=== PATIENT | male | born 2000 | race Caucasian/White ===

== ENCOUNTER 2019-07-24 11:24 | Emergency (ER) | payer SELFPAY ==
[2019-07-24 11:32] VITALS: BMI 47.6
[2019-07-24] MEDS ORDERED: ALBUTEROL SO4 2.5/IPRATROPIUM 0.5 INH SOL 3 ML VIAL.NEB. NEB ONE (11:32)
[2019-07-24] MEDS ORDERED: methylPREDNISolone NA SUCC 125 MG/2 ML VIAL ONE (11:33)
[2019-07-24] MEDS ORDERED: ALBUTEROL SO4 0.083% IH SOL 2.5 MG/3 ML VIAL.NEB. NEB ONE (11:36)
--- NOTE | 2019-07-24 11:36 | PDOC ---
History of Present Illness - General Chief Complaint: Asthma Stated Complaint: ASTHMA Time Seen by Provider: 07/24/19 11:31 History Source: Patient Exam Limitations: No Limitations - History of Present Illness Initial Comments: 07/24/19 11:31 19y M hx of well controlled asthma (on alb at home as needed, lsat hospitalization when he was a child) presents with sob. Pt notes a mild nonproductive cough for seveal days that worsened today. pt has been using his nebs with improvement of his sypmom but ran out. Pt denies any fever/chills, chest pain, hemoptysis, abd pain, n/v, diaphoresis, leg swelling or calf pain. Family Hx: non contriubotory Social: denies smoking/vaping, etoh abuse PMD: Dr. Vizcarra Past History - Past Medical History Allergies/Adverse Reactions: Allergies Allergy/AdvReac Type Severity Reaction Status Date / Time No Known Allergies Allergy Verified 07/24/19 11:41 Home Medications: Ambulatory Orders Albuterol 0.083% Nebulizer Jacqueline [Ventolin 0.083% Nebulizer Soln -] 1 neb NEB Q4H PRN #30 vial 07/24/19 Albuterol Sulfate Inhaler - [Ventolin HFA Inhaler -] 1 - 2 inh PO Q4H PRN #1 inhaler 07/24/19 predniSONE [Deltasone -] 40 mg PO DAILY #8 tablet 07/24/19 Review of Systems - Review of Systems Able to Perform ROS?: Yes Comments:: 07/24/19 11:33 Constitutional - no reported Fever, Chills, HEENT: no reported vision changes, sore throat Respiratory: + cough, sob, no reported hemoptysis Cardiac: no reported chest pain, palpitations, light headedness, leg swelling Abd/GI: no reported abd pain, nausea, vomiting, blood per rectum, melena, diarrhea : no reported dysuria, frequency, discharge Musculskelatal - no reported back pain, joint swelling skin - no reported bruising, erythema, rash neurological: no reported headache, numbness, focal weakness, tingling, ataxia, hematologic: no reported easy bruising, easy bleeding GENERAL: The patient is awake, alert, and fully oriented, moderate repiratory disterss, HEAD: Normocephalic, atraumatic. EYES: extraocular movements intact, sclera anicteric, conjunctiva clear. ENT: Normal voice, Moist mucous membranes. NECK: Normal range of motion, supple LUNGS: Bdiffuse wheezing bilaterally, +accessory muscle use, speaking shor segments HEART: Regular rate and rhythm, normal S1 and S2 without murmur, rub or gallop. ABDOMEN: Soft, nontender, No guarding, no rebound. No CVA tenderness EXTREMITIES: Normal range of motion, no edema. NEUROLOGICAL: No facial assymetry, Normal speech, PSYCH: Normal mood, normal affect. SKIN: Warm, Dry, normal turgor, Heart Score/ECG Review - ECG Impressions Comment:: 07/24/19 12:19 Twelve-lead EKG was performed and reviewed by me. There is normal sinus rhythm with a rate of 113 right axis deviation ED Treatment Course - LABORATORY CBC & Chemistry Diagram: 07/24/19 11:43 07/24/19 11:43 Medical Decision Making - Medical Decision Making suspect asthma excerbation will give nebs, steroids xray will erasess 07/24/19 12:18 pt feeling improved, speaking more words no accessory muscle use still some wheezing b/l cxr neg matt lgiv emag and erassess 07/24/19 12:57 pt looks much better sat was low earlier - but pt was sleeping, whne i woke him up, his sat jumped up to 96-98% on RA. breath sounds clear stil bit tachy, will give fliuds cxr, labs unremarkable will erassess 07/24/19 15:00 after prolonged obsevatoin, pt feeling improved ambulating 2x around the ER without any SOB, tachypneia repeat pulm exam stil with scattered wheezing I discussed the physical exam findings, ancillary test results and final diagnoses with the patient. I answered all of the patient's questions. The patient was satisfied with the care received and felt comfortable with the discharge plan and treatment plan. The patient will call their primary care physician within 24 hours to arrange follow-up and will return to the Emergency Department with any new, persistent or worsening symptoms. Discharge - Discharge Information Problems reviewed: Yes Clinical Impression/Diagnosis: Asthma Qualifiers: Asthma severity: mild Asthma persistence: intermittent Asthma complication type : with acute exacerbation Qualified Code(s): J45.21 - Mild intermittent asthma with (acute) exacerbation Condition: Improved Disposition: HOME - Admission No - Additional Discharge Information Prescriptions: Albuterol 0.083% Nebulizer Jacqueline [Ventolin 0.083% Nebulizer Soln -] 1 neb NEB Q4H PRN #30 vial PRN Reason: Shortness Of Breath Albuterol Sulfate Inhaler - [Ventolin HFA Inhaler -] 1 - 2 inh PO Q4H PRN #1 inhaler PRN Reason: Shortness Of Breath predniSONE [Deltasone -] 40 mg PO DAILY #8 tablet - Follow up/Referral Referrals: Roberto Vizcarra MD [Primary Care Provider] - - Patient Discharge Instructions Patient Printed Discharge Instructions: Asthma -- Adult Additional Instructions: Return to the emergency department immediately with ANY new, persistent or worsening symptoms including worsening difficulty breathing, fevers, chest pain or any other concerns. Use the albuterol as needed, up to every four hours, if you need it more often you should come back to the ED Take the prednisone as prescribed You MUST call and follow up with your doctor in 4-5 days for further evaluation of your symptoms. Results were discussed with you. Please make sure your doctor reviews the results of your emergency evaluation. Your Emergency Department visit is not complete without a follow up with your doctor. Print Language: IRISH - Post Discharge Activity Work/Back to School Note: Back to Work
[2019-07-24] MEDS ORDERED: methylPREDNISolone NA SUCC 125 MG/2 ML VIAL IVPUSH ONE (11:37)
[2019-07-24 11:52] LABS: VENOUS PC02 54.4 mmHg (38-52); VENOUS PH 7.33 (7.31-7.41)
[2019-07-24 11:59] LABS: BASO % 1.3 % (0-2.0); EOS % 3.7 % (0-4.5); HEMATOCRIT 43.6 % (35.4-49); LYMPH % 16.4 % (8-40); MCH 26.5 pg (25.7-33.7); MCHC 32.1 g/dl (32.0-35.9); MEAN CELL VOLUME 82.5 fl (80-96); MEAN PLT VOLUME 8.4 fl (7.5-11.1); MONO % 5.8 % (3.8-10.2); NEUT % 72.8 % (42.8-82.8); PLATELET COUNT 364 K/MM3 (134-434); RBC 5.28 M/mm3 (4.00-5.60); RDW 13.9 % (11.9-15.9); WHITE BLOOD COUNT 13.3 K/mm3 (4.0-10.0)
[2019-07-24 12:06] VITALS: TEMP 99
[2019-07-24 12:09] LABS: VENOUS PO2 < 49 mmHg (28-48)
[2019-07-24] MEDS ORDERED: MAGNESIUM SULF 50% (8.12 MEQ/2 ML-1 GM VIAL) IVPB ONE (12:18)
[2019-07-24] MEDS ORDERED: MAGNESIUM 1GM/D5W - 2 GM/200 ML IVPB IVPB ONE (12:20)
[2019-07-24 12:23] LABS: ALBUMIN 3.6 g/dl (3.4-5.0); BILIRUBIN,TOTAL 0.3 mg/dL (0.2-1); BLOOD UREA NITROGEN 15.8 mg/dL (7-18); CALCIUM 9.3 mg/dL (8.5-10.1); CREATININE 0.8 mg/dL (0.55-1.3); POTASSIUM 4.4 mmol/L (3.5-5.1); TOT PROT 8.2 g/dl (6.4-8.2)
[2019-07-24 12:42] LABS: N-TERMINAL BNP 14.3 pg/ml (5-125)
[2019-07-24] MEDS ORDERED: SODIUM CHLORIDE 1,000 ML IV ONE (12:57)
--- NOTE | 2019-07-24 13:58 | EKG ---
Test Reason : Blood Pressure : / mmHG Vent. Rate : 113 BPM Atrial Rate : 113 BPM P-R Int : 152 ms QRS Dur : 096 ms QT Int : 340 ms P-R-T Axes : 068 102 041 degrees QTc Int : 466 ms POOR DATA QUALITY, INTERPRETATION MAY BE ADVERSELY AFFECTED SINUS TACHYCARDIA RIGHTWARD AXIS BORDERLINE ECG NO PREVIOUS ECGS AVAILABLE Confirmed by LOLITA SÁNCHEZ, GOPAL ([id number]) on 07/24/2019 1:57:55 PM Referred By: Confirmed By:GOPAL MCHUGH MD
[2019-07-24 14:22] VITALS: BP 156/70; PULSE 105
== END 2019-07-24 15:44 | disposition home or self-care (01) ==
LOC: JER 11:24 → SUPCPDRO 11:24 → JER 15:44
PROC: 3E0F7GC Introduction of Other Therapeutic Substance into Respiratory Tract, Via Natural or Artificial Opening (ICD-10-PCS; principal; 2019-07-24)
PROC: 3E0337Z Introduction of Electrolytic and Water Balance Substance into Peripheral Vein, Percutaneous Approach (ICD-10-PCS; 2019-07-24)
PROC: 3E0333Z Introduction of Anti-inflammatory into Peripheral Vein, Percutaneous Approach (ICD-10-PCS; 2019-07-24)
PROC: 3E033GC Introduction of Other Therapeutic Substance into Peripheral Vein, Percutaneous Approach (ICD-10-PCS; 2019-07-24)
DX: J45.20 Mild intermittent asthma, uncomplicated (principal)
CPT/HCPCS: 36415; 71045-TC-FY; 80053; 82803; 83880; 85025; 93005; 93010; 99283-25; J7030

== ENCOUNTER 2021-06-20 12:59 | Emergency (ER) | payer OTHER ==
[2021-06-20 13:20] VITALS: BP 140/72; PULSE 98; TEMP 97.5; BMI 42.8
== END 2021-06-20 17:57 | disposition home or self-care (01) ==
LOC: JER 12:59
DX: J45.901 Unspecified asthma with (acute) exacerbation (principal)
CPT/HCPCS: 99283-25; C9803; U0003; U0005

== ENCOUNTER 2022-11-20 16:13 | Emergency (ER) | payer OTHER ==
[2022-11-20 16:28] VITALS: BP 159/94; PULSE 87; RESP 20; TEMP 98.1; BMI 48.7
[2022-11-20] MEDS ORDERED: predniSONE 20 MG TABLET (UD) PO ONE (16:29)
[2022-11-20] MEDS ORDERED: ALBUTEROL SO4 2.5/IPRATROPIUM 0.5 INH SOL 3 ML VIAL.NEB. NEB SCH (16:30)
== END 2022-11-20 18:05 | disposition home or self-care (01) ==
LOC: JERFT 16:13
PROC: 3E0F7GC Introduction of Other Therapeutic Substance into Respiratory Tract, Via Natural or Artificial Opening (ICD-10-PCS; principal; 2022-11-20)
DX: J45.909 Unspecified asthma, uncomplicated (principal)
CPT/HCPCS: 0241U-QW; 71046-TC-FY; 99284-25

== ENCOUNTER 2022-12-16 20:19 | Inpatient (IN) | payer OTHER ==
[2022-12-16] MEDS ORDERED: ALBUTEROL SO4 2.5/IPRATROPIUM 0.5 INH SOL 3 ML VIAL.NEB. NEB ONE ×2 (20:21→20:25)
[2022-12-16] MEDS ORDERED: MAGNESIUM SULF 50% (8.12 MEQ/2 ML-1 GM VIAL) IVPB ONE (20:25)
[2022-12-16] MEDS ORDERED: methylPREDNISolone NA SUCC 125 MG/2 ML VIAL IVPUSH ONE (20:25)
[2022-12-16] MEDS ORDERED: methylPREDNISolone NA SUCC 125 MG/2 ML VIAL ONE (20:25)
[2022-12-16] MEDS ORDERED: MAGNESIUM SULFATE IN WATER 2 GM/50 ML IVPB IVPB ONE (20:28)
[2022-12-16 20:50] LABS: BASO % 0.7 % (0-2.0); EOS % 7.2 % (0-4.5); HEMATOCRIT 42.1 % (35.4-49); HEMOGLOBIN 14.1 GM/dL (11.7-16.9); LYMPH % 21.1 % (8-40); MCH 26.8 pg (25.7-33.7); MCHC 33.4 g/dl (32.0-35.9); MEAN CELL VOLUME 80.4 fl (80-96); MEAN PLT VOLUME 8.1 fl (7.5-11.1); PLATELET COUNT 388 10^3/uL (134-434); RBC 5.24 M/mm3 (4.00-5.60); RDW 14.8 % (11.9-15.9); WHITE BLOOD COUNT 14.9 K/mm3 (4.0-10.0)
[2022-12-16 20:52] LABS: VENOUS BASE EXCESS 2.9 mmol/L (-2-2); VENOUS O2 SATURATION 63.2 % (70-80); VENOUS PCO2 60.1 mmHg (38-52); VENOUS PH 7.326 (7.310-7.410)
[2022-12-16 21:10] LABS: BLOOD UREA NITROGEN 12.7 mg/dL (7-18); CALCIUM 9.3 mg/dL (8.5-10.1)
[2022-12-16 21:13] LABS: CREATININE 0.8 mg/dL (0.55-1.3)
[2022-12-16 21:15] LABS: BILIRUBIN,TOTAL 0.4 mg/dL (0.2-1); TOT PROT 7.8 g/dl (6.4-8.2)
[2022-12-16] MEDS ORDERED: ALBUTEROL SO4 HFA INHALER IH PRN (23:32)
[2022-12-17] MEDS: ALBUTEROL SO4 2.5/IPRATROPIUM 0.5 INH SOL 3 ML VIAL.NEB. NEB SCH ×7 (00:37→23:00)
[2022-12-17] MEDS: ENOXAPARIN NA (PORCINE) 40 MG/0.4 ML DISP.SYRIN SQ SCH ×3 (00:57→21:22)
[2022-12-17] MEDS: MONTELUKAST NA 5 MG TAB.CHEW PO SCH ×2 (01:26→21:22)
[2022-12-17] MEDS: methylPREDNISolone NA SUCC 40 MG/1 ML VIAL IVPUSH SCH ×3 (02:19→21:22)
[2022-12-17] MEDS: BUDESONIDE 0.25 MG/2ML INH SUSP VIAL NEB SCH ×2 (07:29→20:07)
[2022-12-17 10:00] LABS: HEMATOCRIT 42.3 % (35.4-49); HEMOGLOBIN 13.9 GM/dL (11.7-16.9); MCH 26.2 pg (25.7-33.7); MCHC 32.8 g/dl (32.0-35.9); MEAN CELL VOLUME 79.9 fl (80-96); MEAN PLT VOLUME 8.6 fl (7.5-11.1); PLATELET COUNT 431 10^3/uL (134-434); RDW 14.8 % (11.9-15.9); WHITE BLOOD COUNT 12.1 K/mm3 (4.0-10.0)
[2022-12-17 10:24] LABS: BLOOD UREA NITROGEN 14.2 mg/dL (7-18)
[2022-12-17 10:25] LABS: CALCIUM 9.5 mg/dL (8.5-10.1); MAGNESIUM 2.2 mg/dL (1.8-2.4)
[2022-12-17 10:26] LABS: PHOSPHOROUS 3.7 mg/dL (2.5-4.9)
[2022-12-17 10:27] LABS: CREATININE 0.9 mg/dL (0.55-1.3)
[2022-12-17 10:28] LABS: BILIRUBIN,TOTAL 0.3 mg/dL (0.2-1); TOT PROT 7.9 g/dl (6.4-8.2)
[2022-12-17 11:19] LABS: ANISOCYTOSIS 0; HELMET CELLS 0; HOWELL-JOLLY BODIES 0; MACROCYTOSIS 0; OVALOCYTE 0; ROULEAU 0; SICKELED CELLS 0; TARGET CELLS 0; TEAR DROP CELLS 0; TOXIC GRANULATION 0
[2022-12-17] MEDS ORDERED: methylPREDNISolone NA SUCC 40 MG/1 ML VIAL IVPUSH SCH (11:30)
[2022-12-17 11:41] LABS: EPI CELLS >36 /uL (0-25.1); HYALINE CASTS 15 /uL (0-3.1); PH,URINE 5.5 (5.0-8.0); URINE APPEARANCE CLOUDY; URINE BACTERIA 43 /uL (0-1359); URINE BILIRUBIN NEGATIVE (NEGATIVE); URINE COLOR YELLOW; URINE GLUCOSE (UA) NEGATIVE (NEGATIVE); URINE KETONE TRACE (NEGATIVE); URINE LEUK ESTERASE NEGATIVE (NEGATIVE); URINE NITRITE NEGATIVE (NEGATIVE); URINE PROTEIN 4+ (NEGATIVE); URINE UROBILINOGEN 0.2 mg/dL (0.2-1.0); URINE WBC 21 /uL (0-25.8)
[2022-12-17 20:37] LABS: EPI CELLS 15 /uL (0-25.1); HYALINE CASTS 1 /uL (0-3.1); URINE APPEARANCE CLEAR; URINE BACTERIA 12 /uL (0-1359); URINE BILIRUBIN NEGATIVE (NEGATIVE); URINE COLOR YELLOW; URINE GLUCOSE (UA) NEGATIVE (NEGATIVE); URINE KETONE TRACE (NEGATIVE); URINE LEUK ESTERASE NEGATIVE (NEGATIVE); URINE NITRITE NEGATIVE (NEGATIVE); URINE PROTEIN 4+ (NEGATIVE); URINE RBC 70 /uL (0-23.9); URINE UROBILINOGEN 0.2 mg/dL (0.2-1.0); URINE WBC 10 /uL (0-25.8)
[2022-12-18] MEDS: ALBUTEROL SO4 2.5/IPRATROPIUM 0.5 INH SOL 3 ML VIAL.NEB. NEB SCH ×5 (05:00→20:30)
[2022-12-18] MEDS: BUDESONIDE 0.25 MG/2ML INH SUSP VIAL NEB SCH ×2 (07:13→20:30)
[2022-12-18 09:19] LABS: BASO % 0.5 % (0-2.0); HEMATOCRIT 41.8 % (35.4-49); HEMOGLOBIN 13.5 GM/dL (11.7-16.9); LYMPH % 7.9 % (8-40); MCH 25.9 pg (25.7-33.7); MCHC 32.2 g/dl (32.0-35.9); MEAN CELL VOLUME 80.5 fl (80-96); MEAN PLT VOLUME 8.5 fl (7.5-11.1); MONO % 3.4 % (3.8-10.2); NEUT % 88.2 % (42.8-82.8); PLATELET COUNT 416 10^3/uL (134-434); WHITE BLOOD COUNT 15.9 K/mm3 (4.0-10.0)
[2022-12-18 09:33] LABS: BLOOD UREA NITROGEN 19.8 mg/dL (7-18); CALCIUM 9.4 mg/dL (8.5-10.1)
[2022-12-18] MEDS: ENOXAPARIN NA (PORCINE) 40 MG/0.4 ML DISP.SYRIN SQ SCH ×2 (09:35→21:26)
[2022-12-18 09:37] LABS: CREATININE 0.7 mg/dL (0.55-1.3)
[2022-12-18] MEDS: methylPREDNISolone NA SUCC 40 MG/1 ML VIAL IVPUSH SCH ×2 (09:44→21:27)
[2022-12-18 11:16] LABS: ERYTHROCYTE SEDIMENTATION RATE 15 mm/hr (0-10)
[2022-12-18] MEDS ORDERED: AZITHROMYCIN 250 MG TABLET PO ONE (13:02)
[2022-12-18 15:46] VITALS: BMI 55.1
[2022-12-18] MEDS: MONTELUKAST NA 5 MG TAB.CHEW PO SCH (21:26)
[2022-12-19] MEDS: ALBUTEROL SO4 2.5/IPRATROPIUM 0.5 INH SOL 3 ML VIAL.NEB. NEB SCH ×7 (00:49→23:42)
[2022-12-19] MEDS: BUDESONIDE 0.25 MG/2ML INH SUSP VIAL NEB SCH ×2 (08:22→20:41)
[2022-12-19] MEDS: AZITHROMYCIN 250 MG TABLET PO SCH (09:10)
[2022-12-19] MEDS: ENOXAPARIN NA (PORCINE) 40 MG/0.4 ML DISP.SYRIN SQ SCH ×2 (09:12→21:10)
[2022-12-19] MEDS: methylPREDNISolone NA SUCC 40 MG/1 ML VIAL IVPUSH SCH ×2 (09:12→21:10)
[2022-12-19] MEDS: MONTELUKAST NA 5 MG TAB.CHEW PO SCH (21:10)
[2022-12-20] MEDS: ALBUTEROL SO4 2.5/IPRATROPIUM 0.5 INH SOL 3 ML VIAL.NEB. NEB SCH ×4 (04:45→16:45)
[2022-12-20] MEDS: BUDESONIDE 0.25 MG/2ML INH SUSP VIAL NEB SCH (08:10)
[2022-12-20] MEDS: ENOXAPARIN NA (PORCINE) 40 MG/0.4 ML DISP.SYRIN SQ SCH (09:28)
[2022-12-20] MEDS: methylPREDNISolone NA SUCC 40 MG/1 ML VIAL IVPUSH SCH (09:28)
[2022-12-20] MEDS: AZITHROMYCIN 250 MG TABLET PO SCH (09:28)
[2022-12-20 10:39] VITALS: RESP 18
[2022-12-20 13:43] VITALS: BP 121/68; PULSE 88; TEMP 98.2
== END 2022-12-20 16:58 | disposition home or self-care (01) | DRG 139 ==
LOC: JER 20:19 → JERBED 22:39 → UNDOADMOB 22:39 → J6S 12-17 00:15 → JERBED 12-17 00:15 → J6S 12-18 13:07 → OBSVTOIN 12-18 13:07 → INTOOBSV 12-18 13:07
PROVIDERS: ADMIT Internal Medicine; ATTEND Internal Medicine
DX: J18.9 Pneumonia, unspecified organism (principal); J45.52 Severe persistent asthma with status asthmaticus; E66.2 Morbid (severe) obesity with alveolar hypoventilation; Z68.43 Body mass index [BMI] 50.0-59.9, adult
CPT/HCPCS: 0241U-QW; 36415; 71045-TC-FY; 71250-TC; 76775-TC; 76856-TC; 80048; 80053; 80061; 81003; 82533; 82570; 82803; 83036; 83735; 84100; 84156; 84443; 85025; 85651; 86140; 87086; 93005; 93010; 94640; 94761; 99285-25

== ENCOUNTER 2024-01-10 23:55 | Observation (INO) | payer OTHER ==
[2024-01-11] MEDS ORDERED: DEXAMETHASONE SOD PHOSPHATE 10 MG/1 ML VIAL ONE (00:04)
[2024-01-11] MEDS ORDERED: ALBUTEROL SO4 2.5/IPRATROPIUM 0.5 INH SOL 3 ML VIAL.NEB. NEB ONE (00:06)
[2024-01-11] MEDS: ALBUTEROL SO4 2.5/IPRATROPIUM 0.5 INH SOL 3 ML VIAL.NEB. NEB ONE (00:12)
[2024-01-11] MEDS ORDERED: MAGNESIUM SULFATE IN WATER 2 GM/50 ML IVPB IVPB ONE (00:14)
[2024-01-11 00:23] VITALS: BMI 41.0
[2024-01-11] MEDS: MAGNESIUM SULF 50% (8.12 MEQ/2 ML-1 GM VIAL) IVPB ONE (00:23)
[2024-01-11] MEDS ORDERED: ALBUTEROL SO4 0.083% IH SOL 2.5 MG/3 ML VIAL.NEB. NEB ONE ×2 (01:44→03:22)
[2024-01-11] MEDS: ALBUTEROL SO4 0.083% IH SOL 2.5 MG/3 ML VIAL.NEB. NEB ONE ×2 (01:56→04:07)
[2024-01-11 04:57] LABS: HEMATOCRIT 41.5 % (35.4-49); MCH 27.9 pg (25.7-33.7); MCHC 33.8 g/dl (32.0-35.9); MEAN CELL VOLUME 82.3 fl (80-96); MEAN PLT VOLUME 8.7 fl (7.5-11.1); PLATELET COUNT 276 10^3/uL (134-434); RBC 5.04 M/mm3 (4.00-5.60); RDW 14.8 % (11.9-15.9); WHITE BLOOD COUNT 12.5 K/mm3 (4.0-10.0)
[2024-01-11 05:56] LABS: CALCIUM 9.1 mg/dL (8.5-10.1)
[2024-01-11 05:57] LABS: ALBUMIN 3.5 g/dl (3.4-5.0); BLOOD UREA NITROGEN 10.9 mg/dL (7-18)
[2024-01-11 06:00] LABS: CREATININE 0.8 mg/dL (0.55-1.3)
[2024-01-11 06:02] LABS: BILIRUBIN,TOTAL 0.9 mg/dL (0.2-1); TOT PROT 7.9 g/dl (6.4-8.2)
[2024-01-11 06:44] LABS: ANISOCYTOSIS 3+; MACROCYTOSIS 0; ROULEAU 2+
[2024-01-11] MEDS: ALBUTEROL SO4 2.5/IPRATROPIUM 0.5 INH SOL 3 ML VIAL.NEB. NEB SCH (09:00)
[2024-01-11 09:05] VITALS: BP 128/69; PULSE 89; TEMP 97.8
[2024-01-11] MEDS: methylPREDNISolone NA SUCC 40 MG/1 ML VIAL IVPUSH SCH (09:27)
[2024-01-11] MEDS: ENOXAPARIN NA (PORCINE) 40 MG/0.4 ML DISP.SYRIN SQ SCH (09:27)
[2024-01-11] MEDS: BUDESONIDE/FORMETEROL FUMARATE 160/4.5 mcg INHALER IH SCH (09:27)
[2024-01-11 10:35] VITALS: RESP 19
[2024-01-11] MEDS ORDERED: MONTELUKAST NA 10 MG TABLET PO SCH (22:00)
== END 2024-01-11 17:41 | disposition home or self-care (01) ==
LOC: JER 23:55 → JERBED 01-11 03:21 → J5S 01-11 06:37
PROVIDERS: ADMIT Internal Medicine
PROC: 3E0F7GC Introduction of Other Therapeutic Substance into Respiratory Tract, Via Natural or Artificial Opening (ICD-10-PCS; principal; 2024-01-11)
PROC: 3E033GC Introduction of Other Therapeutic Substance into Peripheral Vein, Percutaneous Approach (ICD-10-PCS; 2024-01-11)
PROC: 3E033GC Introduction of Other Therapeutic Substance into Peripheral Vein, Percutaneous Approach (ICD-10-PCS; 2024-01-11)
DX: J44.1 Chronic obstructive pulmonary disease with (acute) exacerbation (principal); J96.01 Acute respiratory failure with hypoxia; E66.9 Obesity, unspecified
CPT/HCPCS: 0241U-QW; 36415; 71045-TC-FY; 80053; 83036; 85025; 87040; 93005; 93010; 94150; 94640; 96374; 96375; 99285-25; G0378